=== PATIENT | male | born 1970 | race Caucasian/White ===

== ENCOUNTER → 2016-08-17 | Outpatient (CLI) | payer BC ==
[~2016-08-17] MED LIST: 'PARAFON FORTE500 M1 PO; ALBUTEROL0.09 MG/A1 INH; ALBUTEROL0.09 MG/A2 IH; ANAPROX DS550 MG PO; ASPIRIN81 M1 PO; AUGMENTIN 875 M1 TAB PO; AUGMENTIN 875875 MG PO; AVIDOXY100 MG PO; BACTROBAN OINT22 GM PO; CIPRODEX 0.3%-7.5 ML OT; CLARITIN10 MG PO; CORDROL20 MG PO; DARVOCET N 1001 TAB PO; DAYPRO600 M1 PO; FLEXERIL10 MG PO; FLONASE0.05 MG/AC NS; FLUVOXAMINE50 MG PO; HYDROCODONE BIT1 T11 PO; IBUPROFEN400 MG PO; INDOCIN50 MG PO; LEVOFLOXACIN500 MG PO; MEDROL DOSEPAK4 MG PO; MOTRIN IB200 M1 PO; MOTRIN800 MG PO; NAPROSYN500 MG PO; NKHM; NORCO 325 MG-51 TAB PO; NORCO 5-325 TA1 EACH PO; NORFLEX100 MG PO; PREDNICOT20 MG PO; PROAIR HFA0.09 MG/AC INH; ROBAXIN-750750 MG PO; ROBAXIN750 MG PO; ROBITUSSIN AC 110 ML PO; TRIMOX500 MG PO; VIBRAMYCIN100 MG PO; VICODIN 5/500 505 MG PO; VICODIN 500 MG-1 TAB PO; VICODIN ES 7501 TAB PO; VOLTAREN50 M1 PO; ZITHROMAX Z PA250 MG PO; ZITHROMAX250 MG PO; ZOLOFT50 MG PO
[2016-08-17 13:03] LABS: HEMATOCRIT 48.4 % (42.0-52.0); HEMOGLOBIN 16.5 g/dl (14.0-18.0); MEAN CELL VOLUME 92.5 fl (80.0-94.0); MEAN CORPUSCULAR HGB 31.5 pg (27.0-31.0); MEAN CORPUSCULAR HGB CONC 34.1 g/dl (33.0-37.0); MEAN PLATELET VOLUME 8.8 fl (9.6-12.3); RED BLOOD COUNT 5.23 10*6/uL (4.50-5.90); RED CELL DISTRI WIDTH 13.2 % (0-14.5); WHITE BLOOD COUNT 9.3 10*3/uL (4.8-10.8)
[2016-08-17 13:31] LABS: ALBUMIN 3.5 gm/dl (3.1-4.5); ALKALINE PHOSPHATASE 112 U/L (45-117); BILIRUBIN, TOTAL 0.2 mg/dl (0.2-1.0); BUN 12 mg/dl (7-24); CARBON DIOXIDE 26 mmol/L (21-32); CHLORIDE 109 mmol/L (98-107); CHOLESTEROL 210 mg/dL (<200); EST GLOM FILT AFRICAN AMERICAN > 60 ml/min; GLUCOSE 99 mg/dL (65-99); HDL CHOLESTEROL 42 mg/dl (40-60); LDL CHOLESTEROL 107 mg/dL (9-159); SGOT/AST 24 IU/L (3-35); SGPT/ALT 30 U/L (12-78); SODIUM 144 mmol/L (136-145); TOTAL PROTEIN 6.8 gm/dL (6.4-8.2); TRIGLYCERIDES 305 mg/dl (<150); VLDL CHOLESTEROL 61 mg/dL (6-40)
== END | disposition home or self-care (01) ==
LOC: LAB 12:41
PROVIDERS: Family Medicine
DX: F41.1 Generalized anxiety disorder (principal); E74.00 Glycogen storage disease, unspecified; E78.00 Pure hypercholesterolemia, unspecified; R05 Cough; F32.9 Major depressive disorder, single episode, unspecified; R53.83 Other fatigue; E55.9 Vitamin D deficiency, unspecified; F17.200 Nicotine dependence, unspecified, uncomplicated

== ENCOUNTER 2016-09-05 15:32 | Emergency (ER) | payer BC ==
[~2016-09-05] VITALS: Ht 182.8 cm; Wt 117.9 kg
[2016-09-05] MEDS ORDERED: SERTRALINE HYDR25 MG PO (15:43)
[2016-09-05] MEDS ORDERED: NAPROSYN500 MG PO (18:08)
== END 2016-09-05 19:37 | disposition home or self-care (01) ==
LOC: ED 15:32
DX: M25.562 Pain in left knee (principal); R03.0 Elevated blood-pressure reading, without diagnosis of hypertension; F17.200 Nicotine dependence, unspecified, uncomplicated; Z79.899 Other long term (current) drug therapy

== ENCOUNTER 2016-10-03 13:14 | Emergency (ER) | payer BC ==
[~2016-10-03] VITALS: Ht 182.8 cm; Wt 117.9 kg
[~2016-10-03 13:14] MED LIST changes: +SERTRALINE HYDR25 MG PO
[2016-10-03 13:49] LABS: BASO # 0.1 10*3/uL (0.0-0.1); BASO % 0.4 % (0.0-1.0); EOS # 0.1 10*3/uL (0.0-0.4); EOS % 0.8 % (1.0-4.0); HEMATOCRIT 48.5 % (42.0-52.0); HEMOGLOBIN 16.4 g/dl (14.0-18.0); LYMPH # 2.1 10*3/uL (1.3-4.4); LYMPH % 16.5 % (27.0-41.0); MEAN CELL VOLUME 91.3 fl (80.0-94.0); MEAN CORPUSCULAR HGB 30.9 pg (27.0-31.0); MEAN CORPUSCULAR HGB CONC 33.8 g/dl (33.0-37.0); MONO # 1.3 10*3/uL (0.1-1.0); MONO % 9.8 % (3.0-9.0); NEUT # 9.3 10*3/uL (2.3-7.9); NEUT % 72.3 % (47.0-73.0); PLATELET COUNT AUTOMATED 217 10*3/uL (130-400); RED BLOOD COUNT 5.31 10*6/uL (4.50-5.90); RED CELL DISTRI WIDTH 13.2 % (0-14.5); WHITE BLOOD COUNT 12.9 10*3/uL (4.8-10.8)
[2016-10-03 13:55] LABS: BILIRUBIN NEGATIVE (NEGATIVE); BLOOD 1+ (NEGATIVE); CLARITY CLEAR (CLEAR); COLOR YELLOW (YELLOW); GLUCOSE NEGATIVE (NEGATIVE); KETONE NEGATIVE (NEGATIVE); LEUKO ESTERASE NEGATIVE (NEGATIVE); NITRITE NEGATIVE (NEGATIVE); PROTEIN TRACE (NEGATIVE); UROBILINOGEN 0.2 E.U./dl (0.2-1.0)
[2016-10-03 14:03] LABS: MUCOUS TRACE; WBC 0-2 wbc/hpf (0-5)
[2016-10-03 14:04] LABS: URINE REFLEX COMMENT YES (NO)
[2016-10-03 14:04] LABS: ALBUMIN 3.5 gm/dl (3.1-4.5); ALKALINE PHOSPHATASE 115 U/L (45-117); BILIRUBIN, TOTAL 1.2 mg/dl (0.2-1.0); BUN 9 mg/dl (7-24); CARBON DIOXIDE 26 mmol/L (21-32); CHLORIDE 104 mmol/L (98-107); EST GLOM FILT AFRICAN AMERICAN > 60 ml/min; GLUCOSE 111 mg/dL (65-99); POTASSIUM 3.6 mmol/L (3.5-5.1); SGOT/AST 13 IU/L (3-35); SGPT/ALT 19 U/L (12-78); SODIUM 139 mmol/L (136-145); TOTAL PROTEIN 7.2 gm/dL (6.4-8.2)
[2016-10-03] MEDS ORDERED: CIPRO250 MG PO (15:15)
[2016-10-03] MEDS ORDERED: FLAGYL500 MG PO (15:15)
== END 2016-10-03 15:20 | disposition home or self-care (01) ==
LOC: ED 13:14
PROVIDERS: Nurse Practitioner Family
DX: K57.92 Diverticulitis of intestine, part unspecified, without perforation or abscess without bleeding (principal); F17.200 Nicotine dependence, unspecified, uncomplicated

== ENCOUNTER 2016-11-11 07:19 | Emergency (ER) | payer BC ==
[~2016-11-11] VITALS: Ht 182.8 cm; Wt 114.3 kg
[~2016-11-11 07:19] MED LIST changes: +CIPRO250 MG PO; +FLAGYL500 MG PO
== END 2016-11-11 09:58 | disposition home or self-care (01) ==
LOC: ED 07:19
DX: S61.012A Laceration without foreign body of left thumb without damage to nail, initial encounter (principal); F17.200 Nicotine dependence, unspecified, uncomplicated; W45.8XXA Other foreign body or object entering through skin, initial encounter; Y93.89 Activity, other specified; Y92.9 Unspecified place or not applicable; Y99.9 Unspecified external cause status

== ENCOUNTER 2017-02-02 19:21 | Emergency (ER) | payer BC ==
[~2017-02-02] VITALS: Ht 182.8 cm; Wt 120.2 kg
[2017-02-02] MEDS ORDERED: PREDNISONE10 MG PO (21:06)
[2017-02-02] MEDS ORDERED: ZITHROMAX250 MG PO (21:06)
[2017-02-02] MEDS ORDERED: PROAIR HFA8.5 GM INH (21:06)
== END 2017-02-02 21:24 | disposition home or self-care (01) ==
LOC: ED 19:21
DX: J40 Bronchitis, not specified as acute or chronic (principal); R11.0 Nausea; R63.0 Anorexia; J44.9 Chronic obstructive pulmonary disease, unspecified; F17.200 Nicotine dependence, unspecified, uncomplicated; Z79.899 Other long term (current) drug therapy

== ENCOUNTER → 2017-04-28 | Outpatient (CLI) | payer BC ==
[~2017-04-28] MED LIST changes: +PREDNISONE10 MG PO; +PROAIR HFA8.5 GM INH
[2017-04-28 10:34] LABS: HEMATOCRIT 48.6 % (42.0-52.0); HEMOGLOBIN 16.6 g/dl (14.0-18.0); MEAN CELL VOLUME 92.7 fl (80.0-94.0); MEAN CORPUSCULAR HGB 31.7 pg (27.0-31.0); MEAN CORPUSCULAR HGB CONC 34.2 g/dl (33.0-37.0); MEAN PLATELET VOLUME 8.9 fl (9.6-12.3); RED BLOOD COUNT 5.24 10*6/uL (4.50-5.90); RED CELL DISTRI WIDTH 13.3 % (0-14.5)
[2017-04-28 11:08] LABS: ALBUMIN 3.5 gm/dl (3.1-4.5); BUN 9 mg/dl (7-24); CHLORIDE 107 mmol/L (98-107); POTASSIUM 3.9 mmol/L (3.5-5.1); SODIUM 141 mmol/L (136-145)
[2017-04-28 11:13] LABS: ALKALINE PHOSPHATASE 116 U/L (45-117); CHOLESTEROL 206 mg/dL (<200); CREATININE 1.09 mg/dL (0.70-1.30); HDL CHOLESTEROL 48 mg/dl (40-60); LDL CHOLESTEROL 134 mg/dL (9-159); SGOT/AST 17 IU/L (3-35); SGPT/ALT 27 U/L (12-78); TRIGLYCERIDES 121 mg/dl (<150); VLDL CHOLESTEROL 24 mg/dL (6-40)
== END | disposition home or self-care (01) ==
LOC: LAB 10:08 → CT 11:00
PROVIDERS: Family Medicine
DX: R22.1 Localized swelling, mass and lump, neck (principal); E78.00 Pure hypercholesterolemia, unspecified; R53.83 Other fatigue; E55.9 Vitamin D deficiency, unspecified

== ENCOUNTER 2017-05-23 07:43 | Inpatient (IN) | payer BC ==
[~2017-05-23] VITALS: Ht 182.9 cm; Wt 117.7 kg
[2017-05-23] VITALS (7 sets, daily range): BP systolic 123–162; BP diastolic 70–98
--- NOTE | ~2017-05-23 | WRIGHTHP ---
[place], [place] PATIENT HISTORY AND PHYSICAL EXAM NAME: JERRY DARBY [facility] #: [id number] UNIT #: [id number] ROOM: 507 DOCTOR: VANGIE WINSLOW MD BIRTHDATE: [birth year] DOS: 05/23/2017 HISTORY OF PRESENT ILLNESS: The patient is 47 years old. The patient comes in with complaints of palpitations. The patient states that about 2 days prior to Con, the patient started having some palpitations, especially when he sits down and is quiet. He does not experience that when he is walking around. He denies having any chest pains or palpitations, does not have any fever or chills, does not have any abdominal pain, nausea, emesis. The patient states that he was drinking a pretty large amount of coffee daily and about a month ago, decided that he would cut back on his coffee drinking. He is wondering whether his symptoms were brought about by the decrease in the amount of caffeine. PAST MEDICAL HISTORY: None significant. He has never been hospitalized, has not undergone any surgery. Does not take any medications. He does have history of moderate cigarette smoking. SOCIAL HISTORY: Significant for smoking about a pack of cigarettes for the last close to 30 years, about 4-5 alcoholic drinks a week, occasional pot usage. FAMILY HISTORY: Significant for father who had coronary artery disease at the age of 73. Mother who is fairly healthy. His siblings, 2 of them have diabetes. He is and has 6 children who are all grown. PHYSICAL EXAMINATION: GENERAL: He is awake and alert and oriented. VITAL SIGNS: Graphic trend shows a pressure 137/79, pulse of 63, respirations 18, temperature 97.9. LUNGS: Clear. HEART: Regular. ABDOMEN: Soft. EXTREMITIES: Without any edema. LABORATORY DATA: Lactic acid is normal. White cell count is normal, hemoglobin and hematocrit were normal, platelets were normal. Protime is normal. Comprehensive within normal limits. EKG, sinus. ASSESSMENT AND PLAN: The patient who presents with palpitations, possibly from excessive intake of caffeine as well as nicotine. Advised cessation. Echocardiogram is ordered. Check LV function. A low-dose beta shaniqua was added. Cardiology consultation was obtained and the patient is awaiting a stress test. Initial troponins were negative. If the stress test is negative, the plan is to discharge him to home today on a low dose of beta shaniqua. [place], [place] PATIENT HISTORY AND PHYSICAL EXAM NAME: JERRY DARBY UNIT #: [id number] ROOM: 507 DOCTOR: VANGIE WINSLOW MD BIRTHDATE: [birth year] VANGIE WINSLOW MD CM:HISPHYS:PATIENT HISTORY AND PHYSICAL EXAMINATION 1 4 VANGIE WINSLOW MD 05/24/17914 interface
[2017-05-23 08:23] LABS: BASO # 0.1 10*3/uL (0.0-0.1); BASO % 0.5 % (0.0-1.0); EOS # 0.1 10*3/uL (0.0-0.4); EOS % 1.5 % (1.0-4.0); HEMATOCRIT 46.3 % (42.0-52.0); HEMOGLOBIN 15.9 g/dl (14.0-18.0); LYMPH # 2.8 10*3/uL (1.3-4.4); LYMPH % 29.6 % (27.0-41.0); MEAN CELL VOLUME 92.2 fl (80.0-94.0); MEAN CORPUSCULAR HGB 31.7 pg (27.0-31.0); MEAN CORPUSCULAR HGB CONC 34.3 g/dl (33.0-37.0); MEAN PLATELET VOLUME 9.1 fl (9.6-12.3); MONO # 0.9 10*3/uL (0.1-1.0); MONO % 9.5 % (3.0-9.0); NEUT # 5.5 10*3/uL (2.3-7.9); NEUT % 58.7 % (47.0-73.0); PLATELET COUNT AUTOMATED 199 10*3/uL (130-400); RED BLOOD COUNT 5.02 10*6/uL (4.50-5.90); RED CELL DISTRI WIDTH 13.4 % (0-14.5); WHITE BLOOD COUNT 9.4 10*3/uL (4.8-10.8)
[2017-05-23 08:31] LABS: ACT PARTIAL THROMBO TIME 22.6 SECONDS (20.8-31.5); INTERNATIONAL NORM RATIO 0.9 (2.0-3.5)
[2017-05-23 08:46] LABS: ALBUMIN 3.4 gm/dl (3.1-4.5); ALKALINE PHOSPHATASE 106 U/L (45-117); BUN 8 mg/dl (7-24); CHLORIDE 109 mmol/L (98-107); LIPASE 183 U/L (73-393); POTASSIUM 3.6 mmol/L (3.5-5.1); SGOT/AST 23 IU/L (3-35); SGPT/ALT 38 U/L (12-78); SODIUM 140 mmol/L (136-145); TOTAL PROTEIN 6.8 gm/dL (6.4-8.2); TROPONIN I < 0.015 ng/ml (<0.045)
[2017-05-24] VITALS: BP 114/76
[2017-05-24 04:00] VITALS: BP 101/54
[2017-05-24 07:19] LABS: FREE T4 0.95 ng/dl (0.76-1.46)
[2017-05-24 07:24] LABS: THYROID STIM HORMONE (HS) 1.22 uIU/ml (0.358-4.75)
[2017-05-24 08:00] VITALS: BP 137/79
[2017-05-24] MEDS ORDERED: METOPROLOL SUCC25 M2 PO (09:02)
[2017-05-24 12:00] VITALS: BP 125/65
[2017-05-24 16:00] VITALS: BP 112/67
== END 2017-05-24 18:45 | disposition home or self-care (01) | DRG 204 ==
LOC: ED 07:43 → 5E 09:29 → EDHOLD 09:29 → 5E 09:47
PROVIDERS: Emergency Medicine; Internal Medicine
DX: R06.09 Other forms of dyspnea (principal); E11.9 Type 2 diabetes mellitus without complications; R00.2 Palpitations; F12.90 Cannabis use, unspecified, uncomplicated; Z78.9 Other specified health status; F17.210 Nicotine dependence, cigarettes, uncomplicated; Z82.49 Family history of ischemic heart disease and other diseases of the circulatory system; G89.29 Other chronic pain; M54.5 Low back pain; F17.200 Nicotine dependence, unspecified, uncomplicated

== ENCOUNTER 2017-12-08 17:39 | Emergency (ER) | payer BC ==
[~2017-12-08] VITALS: Wt 117.9 kg
[~2017-12-08 17:39] MED LIST changes: +METOPROLOL SUCC25 M2 PO
[2017-12-08] MEDS ORDERED: ALLEGRA-D 24 H1 EACH PO (17:59)
[2017-12-08] MEDS ORDERED: AUGMENTIN 875875 MG PO (17:59)
[2017-12-08] MEDS ORDERED: FLONASE ALLERG9.9 ML NAS (17:59)
== END 2017-12-08 18:02 | disposition home or self-care (01) ==
LOC: ED 17:39
DX: H65.91 Unspecified nonsuppurative otitis media, right ear (principal); R05 Cough; F17.200 Nicotine dependence, unspecified, uncomplicated; F12.10 Cannabis abuse, uncomplicated; Z79.899 Other long term (current) drug therapy

== ENCOUNTER 2017-12-19 14:34 | Emergency (ER) | payer BC ==
[~2017-12-19] VITALS: Ht 182.8 cm; Wt 120.2 kg
[~2017-12-19 14:34] MED LIST changes: +ALLEGRA-D 24 H1 EACH PO; +FLONASE ALLERG9.9 ML NAS
[2017-12-19] MEDS ORDERED: CYCLOBENZAPRINE5 M3 PO (14:56)
[2017-12-19] MEDS ORDERED: PREDNISONE10 MG PO (14:56)
== END 2017-12-19 15:21 | disposition home or self-care (01) ==
LOC: ED 14:34
DX: M54.5 Low back pain (principal); M79.1 Myalgia; Z87.891 Personal history of nicotine dependence

== ENCOUNTER 2018-04-20 14:51 | Inpatient (IN) | payer BC ==
[2018-04-20] VITALS (9 sets, daily range): BP systolic 122–170; BP diastolic 72–102
[~2018-04-20] VITALS: Ht 182.8 cm; Wt 119.1 kg
--- NOTE | ~2018-04-20 | WRIGHTHP ---
[place], [place] PATIENT HISTORY AND PHYSICAL EXAM NAME: JRERY DARBY [facility] #: [id number] UNIT #: [id number] ROOM: 405 DOCTOR: VANGIE WINSLOW MD BIRTHDATE: [birth year] DOS: HISTORY OF PRESENT ILLNESS: The patient is 48 years old. The patient is known to me from a previous admission, comes in with complaints of chest pain, which is midsternal, radiating to the left side of his chest. He has been having these symptoms in the last 2-3 days, getting worse at times and sometimes lightening up. Finally, his forced him to come to the Emergency Room where he was evaluated. He denies having any chest pains this morning. He says that it is much better than when he came in. Denies having any fever, any chills, any pleuritic symptoms, any shortness of breath. He was admitted to the hospital in 05/2017 with palpitations, had a stress test at that time and it was negative. He also had an echo, which was normal. He was placed on beta blockers, but he never took the medicine and he unfortunately was continuing to smoke. PAST MEDICAL HISTORY: As above, history of hospitalization in 05/2017 with palpitations. SOCIAL HISTORY: Smokes about a pack of cigarettes for the last more than 25 years. Drinks about 4-5 drinks a couple of beers a day and sometimes up to a case of beer a week, occasional usage of marijuana. FAMILY HISTORY: Significant for father who had coronary artery disease at the age of 76, mother who has history of deep venous thrombosis; pulmonary embolism, on long-term use of anticoagulants. One brother who has history of DVT. PHYSICAL EXAMINATION: GENERAL: He is awake and alert and oriented. VITAL SIGNS: Graphic trend shows a pressure of 142/82, pulse of 60, respirations 20, temperature 97.2. LUNGS: Clear. HEART: Regular. ABDOMEN: Obese, soft, nontender. EXTREMITIES: Without any edema. ASSESSMENT AND PLAN: 1. The patient admitted with precordial chest pain. Risk factors including smoking. The patient is scheduled to have a stress test consultation, Dr. Mendez obtained. Echocardiogram is ordered. The patient is restarted on Lopressor, beta blockers as well as lipid lowering medications. 2. Mixed hyperlipidemia. Add Zocor. 3. Has moderate cigarette smoker, advised smoking cessation. The plan is to discharge the patient to home if the stress test is negative. [place], [place] PATIENT HISTORY AND PHYSICAL EXAM NAME: JERRY DARBY UNIT #: [id number] ROOM: 405 DOCTOR: VANGIE WINSLOW MD BIRTHDATE: [birth year] VANGIE WINSLOW MD CM:HISPHYS:PATIENT HISTORY AND PHYSICAL EXAMINATION 1 VANGIE WINSLOW MD 04/21/18911 interface
--- NOTE | ~2018-04-20 | EKG ---
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
--- NOTE | ~2018-04-20 | EKG ---
[place], [place] ELECTROCARDIOGRAM REPORT NAME: JERRY DARBY UNIT #: [id number] ROOM: 405 DOCTOR: ELLA DRAFT REPORT BIRTHDATE: [birth year] [facility] Test Date: 2018-04-20 Test Time: 20:09:46 Pat Name: JERRY DARBY Department: Room: 405 Gender: M [employer] Worker: Jerica Loera : 1970 Requested By: AKASH CAMPO Order Number: [id number] Reading MD: Linda Sanderson MD Measurements Intervals [place] Rate: 60 P: 69 HI: 166 QRS: 28 QRSD: 116 T: 58 QT: 415 QTc: 415 Interpretive Statements Sinus rhythm Nonspecific intraventricular conduction delay Borderline low voltage, extremity leads Baseline wander in lead(s) V2 Electronically Signed On 04-24-2018 13:57:06 PST by Linda Sanderson MD CM:EKGRPT:ELECTROCARDIOGRAM REPORT 08 1357 AKASH JARAMILLO DRAFT REPORT AKASH CAMPO M.D.
--- NOTE | ~2018-04-20 | CON ---
[place], [place] REPORT OF CONSULTATION NAME: JERRY DARBY [facility] #: [id number] UNIT #: [id number] ROOM: 405 DOCTOR: ZHEN DELGADO MD BIRTHDATE: [birth year] DOS: 04/21/2018 CARDIOLOGY CONSULTATION REASON FOR CONSULTATION: Left chest discomfort. HISTORY OF PRESENT ILLNESS: The patient is a 48-year-old man who has no documented history of coronary artery disease. He did have a cardiac evaluation by the undersigned in 05/2017 when he presented to the [facility] with palpitations. At that time, he ruled out for a myocardial infarction. An echocardiogram and exercise myocardial stress test both were normal. He was doing well until yesterday. He stated that he noted that he had a tender area in his left axilla. The following morning when he awakened the tender area was gone, but he felt a pain in his left anterior chest. This was not tender, but was associated with some diaphoresis and dyspnea. He did not have any vomiting. The symptoms persisted for 8-10 hours while he was at work. He became concerned and then he came to the Emergency Room. His symptoms have persisted, but are no longer associated with any other symptoms. In the Emergency Room, his electrocardiogram was normal and serial cardiac troponin levels have been normal. PAST MEDICAL HISTORY: Includes: 1. Long-term and ongoing cigarette abuse. 2. Bronchitis. 3. Mildly elevated blood pressure (not currently treated). 4. Degenerative joint disease of his hips and knees. 5. Pleuritic chest pain. The patient initially thought to have a pulmonary embolism, but this was subsequently ruled out. 6. Hospitalization, 05/2017 with palpitations. The patient had no documented arrhythmias and a stress test and echo were normal at that time. MEDICATIONS: Prior to admission included metoprolol 25 mg daily and simvastatin 10 mg at bedtime. ALLERGIES: He has no known drug allergies. FAMILY HISTORY: The patient's father had coronary artery disease with a 4-vessel bypass in his late 60s or 70s. Several family members do have diabetes. A brother early in life from congenital heart disease. REVIEW OF SYSTEMS: The patient denies diplopia or loss of vision. He denies lightheadedness or syncope. He denies nausea or vomiting. He denies fevers, chills, sweats or recent weight change. He denies focal weakness. He did have the chest pain discussed above. He does have some dyspnea with exertion, but denies cough, hemoptysis or hematemesis. He denies that he has pleuritic chest pain at this time. He denies any change in bowel or bladder habits. He denies blood in his stools or urine. He denies any peripheral edema. He denies polyuria or polydipsia. Denies heat or cold intolerance. The remaining of the review of systems is negative except as noted above. [place], [place] REPORT OF CONSULTATION NAME: JERRY DARBY UNIT #: [id number] ROOM: 405 DOCTOR: ZHEN DELGADO MD BIRTHDATE: [birth year] SOCIAL HISTORY: The patient is and lives with his . 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 He does smoke a half a pack to a pack of cigarettes a day and does drink alcohol several days a week. PHYSICAL EXAMINATION: GENERAL: The patient is a well-nourished white male, awake, alert and oriented. VITAL SIGNS: Pulse is 60 and regular, blood pressure is 142/82. He weighs 119.1 kg and has a body mass index of 35.6. HEENT: Normocephalic and atraumatic. Extraocular muscles are intact. Sclerae are clear. Pupils equal, round and react to light. The oral mucosa is moist. Tongue is midline. NECK: Supple. He has no jugular distention. Carotids are full. There are no bruits. He has no neck or supraclavicular masses and no thyromegaly. RESPIRATORY: Respirations are unlabored. CHEST: Clear to auscultation and percussion. He has no presacral edema or chest wall tenderness. CARDIOVASCULAR: His heart has a regular rhythm. He has a soft S4 gallop, but no S3 or murmur. The PMI is not displaced. He has no precordial heave, lift or thrill. I could not reproduce his pain by palpation of the anterior chest. ABDOMEN: Soft and normally active without masses, organomegaly or bruits. EXTREMITIES: Showed no clubbing, cyanosis or edema. LABORATORY DATA: I reviewed his electrocardiogram, which showed sinus rhythm and was a normal tracing. Chest x-ray showed no acute changes and a CT angiogram of the chest was also normal. Serial troponin levels were normal. CBC is normal. IMPRESSIONS: 1. Atypical chest pain. The fact that the pain has lasted for multiple hours without any EKG changes or elevation in troponin, is reassuring. He does have some risk factors for coronary artery disease, so we will proceed with a pharmacologic stress test. He cannot do an exercise test because of hip arthritis. 2. History of palpitations and increased cardiac awareness. No significant arrhythmia has been documented in the past. 3. Long-term and ongoing cigarette abuse. PLAN: We will proceed with a pharmacologic stress test. Further recommendations will depend upon the results of the stress test. I did review his echocardiogram this morning and it is normal. I thank Dr. Stallworth for asking our advice regarding his care. [place], [place] REPORT OF CONSULTATION NAME: JERRY DARBY UNIT #: [id number] ROOM: 405 DOCTOR: ZHEN DELGADO MD BIRTHDATE: [birth year] ZHEN DELGADO MD CM:CONSTR:REPORT OF CONSULTATION 1026 04/21/18 192 interface
--- NOTE | ~2018-04-20 | EKG ---
[place], [place] ELECTROCARDIOGRAM REPORT NAME: JERRY DARBY UNIT #: [id number] ROOM: 405 DOCTOR: ELLA DRAFT REPORT BIRTHDATE: [birth year] [facility] Test Date: 2018-04-20 Test Time: 18:04:41 Pat Name: JERRY DARBY Department: Room: 405 Gender: M [employer] Driver: : 1970 Requested By: AKASH CAMPO Order Number: [id number] Reading MD: Landon Mendez MD Measurements Intervals [place] Rate: 63 P: 60 NE: 162 QRS: 9 QRSD: 110 T: 60 QT: 402 QTc: 412 Interpretive Statements Sinus rhythm RSR' in V1 or V2, right VCD or RVH No change from earlier ECG this date. Electronically Signed On 04-21-2018 12:12:07 PST by Landon Mendez MD CM:EKGRPT:ELECTROCARDIOGRAM REPORT 1804 1212 AKASH JARAMILLO DRAFT REPORT AKASH CAMPO M.D.
[~2018-04-20 14:51] MED LIST changes: +CYCLOBENZAPRINE5 M3 PO
[2018-04-20 15:07] LABS: BASO % 0.4 % (0.0-1.0); EOS # 0.2 10*3/uL (0.0-0.4); EOS % 1.8 % (1.0-4.0); HEMATOCRIT 51.6 % (42.0-52.0); HEMOGLOBIN 17.8 g/dl (14.0-18.0); LYMPH # 2.3 10*3/uL (1.3-4.4); LYMPH % 25.8 % (27.0-41.0); MEAN CORPUSCULAR HGB 32.8 pg (27.0-31.0); MEAN CORPUSCULAR HGB CONC 34.5 g/dl (33.0-37.0); MEAN PLATELET VOLUME 8.8 fl (9.6-12.3); MONO # 0.6 10*3/uL (0.1-1.0); MONO % 6.4 % (3.0-9.0); NEUT # 5.9 10*3/uL (2.3-7.9); NEUT % 65.4 % (47.0-73.0); PLATELET COUNT AUTOMATED 236 10*3/uL (130-400); RED BLOOD COUNT 5.43 10*6/uL (4.50-5.90); RED CELL DISTRI WIDTH 12.9 % (0-14.5)
[2018-04-20 15:16] LABS: ACT PARTIAL THROMBO TIME 21.3 SECONDS (20.8-31.5); INTERNATIONAL NORM RATIO 0.9 (2.0-3.5)
[2018-04-20 15:23] LABS: ALBUMIN 3.7 gm/dl (3.1-4.5); ALKALINE PHOSPHATASE 115 U/L (45-117); BUN 12 mg/dl (7-24); CHLORIDE 104 mmol/L (98-107); POTASSIUM 3.5 mmol/L (3.5-5.1); SGOT/AST 25 IU/L (3-35); SGPT/ALT 36 U/L (12-78); SODIUM 138 mmol/L (136-145); TOTAL PROTEIN 7.2 gm/dL (6.4-8.2)
[2018-04-20 15:24] LABS: TROPONIN I < 0.015 ng/ml (<0.045)
[2018-04-21] VITALS: BP 145/94
[2018-04-21 02:58] LABS: CHOLESTEROL 188 mg/dL (<200); HDL CHOLESTEROL 38 mg/dl (40-60); LDL CHOLESTEROL 126 mg/dL (9-159); TRIGLYCERIDES 121 mg/dl (<150); VLDL CHOLESTEROL 24 mg/dL (6-40)
[2018-04-21 08:00] VITALS: BP 142/82
[2018-04-21] MEDS ORDERED: METOPROLOL SUCC25 M2 PO (08:13)
[2018-04-21] MEDS ORDERED: ZOCOR10 MG PO (08:13)
[2018-04-21 12:00] VITALS: BP 142/82
== END 2018-04-21 13:36 | disposition home or self-care (01) | DRG 313 ==
LOC: ED 14:51 → EDHOLD 17:53 → 4E 17:53
PROVIDERS: Emergency Medicine; Internal Medicine
PROC: 3E073KZ Introduction of Other Diagnostic Substance into Coronary Artery, Percutaneous Approach (ICD-10-PCS; principal; 2018-04-21)
PROC: 4A02XM4 Measurement of Cardiac Total Activity, External Approach (ICD-10-PCS; principal; 2018-04-21)
DX: R07.2 Precordial pain (principal); E78.2 Mixed hyperlipidemia; M17.0 Bilateral primary osteoarthritis of knee; M16.0 Bilateral primary osteoarthritis of hip; F17.210 Nicotine dependence, cigarettes, uncomplicated; Z86.711 Personal history of pulmonary embolism; Z82.49 Family history of ischemic heart disease and other diseases of the circulatory system; Z79.82 Long term (current) use of aspirin; Z71.6 Tobacco abuse counseling

== ENCOUNTER 2019-07-20 18:29 | Inpatient (IN) | payer BC ==
[~2019-07-20] VITALS: Ht 182.9 cm; Wt 118.2 kg
[~2019-07-20 18:29] MED LIST changes: +ZOCOR10 MG PO
[2019-07-20 18:42] VITALS: BP 178/96
[2019-07-20 19:46] LABS: CLARITY CLEAR (CLEAR); COLOR STRAW (YELLOW)
[2019-07-20 19:47] LABS: BILIRUBIN NEGATIVE (NEGATIVE); BLOOD TRACE-INTACT (NEGATIVE); GLUCOSE NEGATIVE (NEGATIVE); KETONE NEGATIVE (NEGATIVE); LEUKO ESTERASE NEGATIVE (NEGATIVE); NITRITE NEGATIVE (NEGATIVE); PH 6.5 (5.0-9.0); UROBILINOGEN 0.2 E.U./dl (0.2-1.0)
[2019-07-20 19:49] LABS: BACTERIA TRACE; EPITHELIAL CELLS 0-2; WBC 0-2 wbc/hpf (0-5)
[2019-07-20 19:52] LABS: BASO # 0.1 10*3/uL (0.0-0.1); BASO % 0.3 % (0.0-1.0); EOS # 0.1 10*3/uL (0.0-0.4); EOS % 0.5 % (1.0-4.0); HEMOGLOBIN 16.9 g/dl (14.0-18.0); LYMPH # 1.9 10*3/uL (1.3-4.4); MEAN CORPUSCULAR HGB 33.1 pg (27.0-31.0); MEAN CORPUSCULAR HGB CONC 33.8 g/dl (33.0-37.0); MEAN PLATELET VOLUME 9.2 fl (9.6-12.3); MONO # 1.2 10*3/uL (0.1-1.0); MONO % 8.1 % (3.0-9.0); NEUT # 11.6 10*3/uL (2.3-7.9); NEUT % 77.8 % (47.0-73.0); PLATELET COUNT AUTOMATED 201 10*3/uL (130-400); RED CELL DISTRI WIDTH 12.6 % (0-14.5); WHITE BLOOD COUNT 14.9 10*3/uL (4.8-10.8)
[2019-07-20 20:08] LABS: ALBUMIN 3.4 gm/dl (3.1-4.5); ALKALINE PHOSPHATASE 109 U/L (45-117); BUN 12 mg/dl (7-24); CHLORIDE 108 mmol/L (98-107); CREATININE 1.02 mg/dL (0.70-1.30); LIPASE 147 U/L (73-393); POTASSIUM 3.3 mmol/L (3.5-5.1); SGPT/ALT 35 U/L (12-78); SODIUM 138 mmol/L (136-145); TOTAL PROTEIN 6.7 gm/dL (6.4-8.2)
[2019-07-20 20:11] LABS: SGOT/AST 19 IU/L (3-35)
[2019-07-20 22:38] VITALS: BP 152/93
--- NOTE | 2019-07-20 22:41 | NUR ---
PT RESTING IN BED. IN NO ACUTE DISTRESS
--- NOTE | 2019-07-21 00:06 | NUR ---
PT STATES HIS PAIN HAS DECREASED SINCE THE DILAUDID
[2019-07-21 00:15] VITALS: BP 149/94
--- NOTE | 2019-07-21 00:15 | NUR ---
A 49, admitted to 5E, under the services of Dr. BREN BARAHONA,ELIANA Cooper with a diagnosis of DIVERTICULITIS, HYPOKALEMIA. Chief complaint is RIGHT AND LEFT LOWER QUADRANT ABDOMINAL PAIN. Patient arrived via CART from ER. Initial assessment completed. Vital signs taken and recorded. DR. BREN BARAHONA,ELIANA Cooper notified of admission to the unit. Orders received. See assessment for past medical history, medications and allergies. Patient and/or family oriented to [facility]. visitation policy reviewed. Clothing/patient valuable form completed. LUIS RODRIGUEZ RN
--- NOTE | 2019-07-21 06:30 | NUR ---
CALLED AT THIS TIME TO NOTIFY OF NEW CONSULT, MESSAGE LEFT ON VOICE MAIL. WILL ATTEMPT TO CALL AT A LATER TIME.
[2019-07-21 07:30] LABS: BUN 10 mg/dl (7-24); CHLORIDE 110 mmol/L (98-107); CREATININE 0.94 mg/dL (0.70-1.30); POTASSIUM 3.3 mmol/L (3.5-5.1); SODIUM 140 mmol/L (136-145)
[2019-07-21 08:00] VITALS: BP 125/72
--- NOTE | 2019-07-21 09:09 | NUR ---
Dilaudid given for c/o deep aching lower abdominal pain. Will monitor.
--- NOTE | 2019-07-21 10:00 | NUR ---
Dilaudid effective. Patient satisified, no c/o pain or discomfort.
--- NOTE | 2019-07-21 13:44 | NUR ---
Dilaudid given for patient c/o lower abdominal pain. Will monitor.
--- NOTE | 2019-07-21 14:20 | NUR ---
Dilaudid effective. Patient asleep with respirations >12.
--- NOTE | 2019-07-21 15:11 | NUR ---
Message left with regarding consult.
[2019-07-21 16:00] VITALS: BP 126/70
[2019-07-21 20:00] VITALS: BP 132/59
--- NOTE | 2019-07-21 23:00 | NUR ---
PRN IV DILAUDID GIVEN AT THIS TIME FOR 6/10 LOWER ABDOMINAL PAIN. A&O X3, CALL LIGHT WITHIN REACH. WILL CONTINUE TO MONITOR.
[2019-07-22] VITALS: BP 134/77
[2019-07-22 06:30] LABS: BASO % 0.3 % (0.0-1.0); EOS # 0.1 10*3/uL (0.0-0.4); EOS % 1.1 % (1.0-4.0); HEMATOCRIT 46.7 % (42.0-52.0); HEMOGLOBIN 15.4 g/dl (14.0-18.0); LYMPH # 1.6 10*3/uL (1.3-4.4); LYMPH % 22.5 % (27.0-41.0); MEAN CELL VOLUME 99.4 fl (80.0-94.0); MEAN CORPUSCULAR HGB 32.8 pg (27.0-31.0); MEAN PLATELET VOLUME 9.2 fl (9.6-12.3); MONO # 0.7 10*3/uL (0.1-1.0); MONO % 10.2 % (3.0-9.0); NEUT # 4.6 10*3/uL (2.3-7.9); NEUT % 65.8 % (47.0-73.0); PLATELET COUNT AUTOMATED 172 10*3/uL (130-400); RED CELL DISTRI WIDTH 12.3 % (0-14.5)
[2019-07-22 07:07] LABS: BUN 7 mg/dl (7-24); CHLORIDE 110 mmol/L (98-107); CREATININE 0.84 mg/dL (0.70-1.30); POTASSIUM 3.8 mmol/L (3.5-5.1); SODIUM 141 mmol/L (136-145)
[2019-07-22 08:00] VITALS: BP 135/88
[2019-07-22 16:00] VITALS: BP 155/91
--- NOTE | 2019-07-22 17:20 | NUR ---
Dilaudid given for c/o abdominal pain. Will monitor.
--- NOTE | 2019-07-22 17:50 | NUR ---
Dilaudid effective. Patient satisfied.
--- NOTE | 2019-07-22 19:40 | NUR ---
48 hour chart check complete
[2019-07-22 20:00] VITALS: BP 144/84
--- NOTE | 2019-07-22 23:00 | NUR ---
PRN IV DILAUDID GIVEN AT THIS TIME FOR 5/10 RLQ ABDOMINAL PAIN, A&O X3, CALL LIGHT WITHIN REACH, WILL CONTINUE TO MONITOR.
[2019-07-23] VITALS: BP 152/96
--- NOTE | 2019-07-23 | NUR ---
PATIENT STATED THAT PAIN WAS NOW A 2/10 AFTER PRN IV DILAUDID WAS GIVEN, A&O X3 CALL LIGHT WITHIN REACH WILL CONTINUE TO MONITOR.
[2019-07-23 06:54] LABS: BASO % 0.4 % (0.0-1.0); EOS # 0.1 10*3/uL (0.0-0.4); EOS % 1.4 % (1.0-4.0); HEMATOCRIT 45.2 % (42.0-52.0); HEMOGLOBIN 14.9 g/dl (14.0-18.0); LYMPH # 1.7 10*3/uL (1.3-4.4); LYMPH % 23.8 % (27.0-41.0); MEAN CELL VOLUME 99.6 fl (80.0-94.0); MEAN CORPUSCULAR HGB 32.8 pg (27.0-31.0); MEAN PLATELET VOLUME 9.4 fl (9.6-12.3); MONO # 0.8 10*3/uL (0.1-1.0); MONO % 11.2 % (3.0-9.0); NEUT # 4.5 10*3/uL (2.3-7.9); NEUT % 63.1 % (47.0-73.0); PLATELET COUNT AUTOMATED 178 10*3/uL (130-400); RED BLOOD COUNT 4.54 10*6/uL (4.50-5.90); RED CELL DISTRI WIDTH 12.3 % (0-14.5); WHITE BLOOD COUNT 7.2 10*3/uL (4.8-10.8)
[2019-07-23 07:16] LABS: BUN 8 mg/dl (7-24); CHLORIDE 110 mmol/L (98-107); CREATININE 1.01 mg/dL (0.70-1.30); POTASSIUM 3.6 mmol/L (3.5-5.1); SODIUM 140 mmol/L (136-145)
[2019-07-23 08:00] VITALS: BP 134/82
--- NOTE | 2019-07-23 09:00 | NUR ---
Manager Analysis in to talk to patient. Patient states lives at home with his , daughter, and granddaughter. There are "lots" steps in the home. Physician: Dr. Manuel Frias Pharmacy: [facility] Home health services: none Patient's level of ADLs: INDEPENDENT Patient has working utilities: yes DME: none Follow-up physician's appointment after d/c: he prefers to make his own follow up appt upon discharge Does patient want to access PORTAL?: no Discharge plan discussed with patient. He lives at home with his , daughter, and granddaughter. He is independent in his ADLs and ambulation. Discussed home health care services and he denies any home needs at this time. When medically stable he will be discharged to home. He states his will provide transportation on discharge. ANDREW CHACKO
[2019-07-23 12:00] VITALS: BP 155/98
--- NOTE | 2019-07-23 12:01 | NUR ---
PT MEDICATED WITH IV DILAUDID PER PRN ORDER FOR C/O ABD PAIN. RATES PAIN 10/23. WILL MONITOR EFFECTIVENESS.
--- NOTE | 2019-07-23 12:45 | NUR ---
IV DILAUDID EFFECTIVE PER PT. WILL CONTINUE TO MONITOR.
--- NOTE | 2019-07-23 14:27 | NUR ---
IN TO SEE PATIENT.
[2019-07-23 16:00] VITALS: BP 156/101
--- NOTE | 2019-07-23 18:50 | NUR ---
PT MEDICATED WITH IV DILAUDID PER PRN ORDER FOR C/O ABD PAIN. RATES PAIN 11/22. WILL MONITOR EFFECTIVENESS.
[2019-07-23 20:00] VITALS: BP 151/87
--- NOTE | 2019-07-23 21:00 | NUR ---
RESTING IN BED WITH NO ACUTE DISTRESS NOTED. RESPIRATIONS EASY. LUNGS DIMINISHED, CLEAR. PULSE OX 99% RA. ABD SOFT WITH NORMO BS. IV FLUIDS INFUSING PER ORDER. CALL LIGHT WITHIN REACH. NO VOICED COMPLAINTS
--- NOTE | 2019-07-23 22:58 | NUR ---
24 HR chart check completed.
--- NOTE | 2019-07-23 23:09 | NUR ---
REQUESTED AND RECEIVED DILAUDID IV PER PRN ORDER FOR COMPLAINTS OF ABD PAIN RATING A 5. CALL LIGHT WITHIN REACH. WILL MONITOR FOR EFFECTIVENESS
[2019-07-24] VITALS: BP 154/91
--- NOTE | 2019-07-24 | NUR ---
REMAINS AWAKE, WATCHING TV. STATES RELIEF FROM EARLIER MEDS. RESPIRATIONS EASY. VSS. IV FLUIDS INFUSING PER ORDER. CALL LIGHT WITHIN REACH. NO FURTHER VOICED COMPLAINTS
--- NOTE | 2019-07-24 03:00 | NUR ---
SLEEPING. IV FLUIDS MAINTAINED.
--- NOTE | 2019-07-24 06:00 | NUR ---
SLEPT THROUGHOUT NIGHT WITH NO DISTRESS NOTED. RESPIRATIONS EASY. IV FLUIDS MAINTAINED. CALL LIGHT WITHIN REACH. NO VOICED COMPLAINTS THIS SHIFT
[2019-07-24 06:33] LABS: BASO % 0.4 % (0.0-1.0); EOS # 0.1 10*3/uL (0.0-0.4); EOS % 1.7 % (1.0-4.0); HEMATOCRIT 46.8 % (42.0-52.0); HEMOGLOBIN 15.7 g/dl (14.0-18.0); LYMPH # 1.6 10*3/uL (1.3-4.4); LYMPH % 20.8 % (27.0-41.0); MEAN CELL VOLUME 98.9 fl (80.0-94.0); MEAN CORPUSCULAR HGB 33.2 pg (27.0-31.0); MEAN CORPUSCULAR HGB CONC 33.5 g/dl (33.0-37.0); MEAN PLATELET VOLUME 9.1 fl (9.6-12.3); MONO # 0.8 10*3/uL (0.1-1.0); MONO % 10.3 % (3.0-9.0); NEUT % 66.5 % (47.0-73.0); PLATELET COUNT AUTOMATED 190 10*3/uL (130-400); RED BLOOD COUNT 4.73 10*6/uL (4.50-5.90); RED CELL DISTRI WIDTH 12.2 % (0-14.5); WHITE BLOOD COUNT 7.5 10*3/uL (4.8-10.8)
[2019-07-24 07:01] LABS: BUN 8 mg/dl (7-24); CHLORIDE 110 mmol/L (98-107); CREATININE 1.03 mg/dL (0.70-1.30); SODIUM 142 mmol/L (136-145)
[2019-07-24 08:00] VITALS: BP 147/86
--- NOTE | 2019-07-24 09:40 | NUR ---
PT RESTING IN BED. RESP-EASY AND REGULAR. IVF INFUSING WITH NO PROBLEM. NO C/O AT THIS TIME. CALL LIGHT IN REACH. SEE SHIFT ASSESSMENT.
[2019-07-24] MEDS ORDERED: AUGMENTIN 875-875 MG PO (10:26)
--- NOTE | 2019-07-24 12:13 | NUR ---
Discharge instructions reviewed with patient/family. Patient receptive and verbalizes understanding. Follow-up care arranged. Written instructions given to patient/family. [facility] REMOVED 2X2 APPLIED. AMBULATORY OFF THE FLOOR FOR DISCHARGE. KENNEDY DAY
== END 2019-07-24 12:13 | disposition home or self-care (01) | DRG 392 ==
LOC: ED 18:29 → EDHOLD 22:51 → 5E 22:51
PROVIDERS: Nurse Practitioner; ADMIT Internal Medicine
DX: K57.32 Diverticulitis of large intestine without perforation or abscess without bleeding (principal); E87.6 Hypokalemia; E78.2 Mixed hyperlipidemia; I10 Essential (primary) hypertension; E66.01 Morbid (severe) obesity due to excess calories; F17.210 Nicotine dependence, cigarettes, uncomplicated; F12.90 Cannabis use, unspecified, uncomplicated; G89.29 Other chronic pain; M54.5 Low back pain; M17.11 Unilateral primary osteoarthritis, right knee; Z68.35 Body mass index [BMI] 35.0-35.9, adult; Z71.6 Tobacco abuse counseling

== ENCOUNTER → 2019-11-16 | Outpatient (CLI) | payer BC ==
[~2019-11-16] MED LIST changes: +AUGMENTIN 875-875 MG PO
== END | disposition home or self-care (01) ==
LOC: US 16:56
DX: N50.3 Cyst of epididymis (principal); N50.89 Other specified disorders of the male genital organs

== ENCOUNTER 2019-12-01 09:28 | Emergency (ER) | payer BC ==
[~2019-12-01] VITALS: Ht 182.8 cm; Wt 111.1 kg
[2019-12-01] MEDS ORDERED: CYCLOBENZAPRINE5 M3 PO (10:39)
[2019-12-01] MEDS ORDERED: MEDROL DOSEPAK4 MG PO (10:39)
[2019-12-01] MEDS ORDERED: NORCO 5-325 TA1 EACH PO (10:39)
== END 2019-12-01 10:57 | disposition home or self-care (01) ==
LOC: ED 09:28
DX: M54.16 Radiculopathy, lumbar region (principal); F32.9 Major depressive disorder, single episode, unspecified; M19.90 Unspecified osteoarthritis, unspecified site; F17.200 Nicotine dependence, unspecified, uncomplicated; Z79.899 Other long term (current) drug therapy

== ENCOUNTER → 2019-12-11 | Outpatient (CLI) | payer BC | END | disposition home or self-care (01) | LOC: RAD 11:54 | DX: M85.88 Other specified disorders of bone density and structure, other site (principal); M47.816 Spondylosis without myelopathy or radiculopathy, lumbar region; M54.30 Sciatica, unspecified side ==

== ENCOUNTER 2020-08-09 12:44 | Emergency (ER) | payer BC ==
[~2020-08-09] VITALS: Wt 113.4 kg
[2020-08-09 13:20] LABS: BASO # 0.1 10*3/uL (0.0-0.1); BASO % 0.7 % (0.0-1.0); EOS # 0.1 10*3/uL (0.0-0.4); EOS % 1.1 % (1.0-4.0); HEMATOCRIT 52.2 % (42.0-52.0); LYMPH # 2.3 10*3/uL (1.3-4.4); LYMPH % 24.3 % (27.0-41.0); MEAN CELL VOLUME 99.2 fl (80.0-94.0); MEAN CORPUSCULAR HGB 33.3 pg (27.0-31.0); MEAN CORPUSCULAR HGB CONC 33.5 g/dl (33.0-37.0); MEAN PLATELET VOLUME 8.9 fl (9.6-12.3); MONO # 0.9 10*3/uL (0.1-1.0); MONO % 9.3 % (3.0-9.0); NEUT # 6.1 10*3/uL (2.3-7.9); NEUT % 64.4 % (47.0-73.0); PLATELET COUNT AUTOMATED 213 10*3/uL (130-400); RED BLOOD COUNT 5.26 10*6/uL (4.50-5.90); RED CELL DISTRI WIDTH 12.3 % (0-14.5); WHITE BLOOD COUNT 9.5 10*3/uL (4.8-10.8)
[2020-08-09 13:40] LABS: ALBUMIN 3.6 gm/dl (3.1-4.5); ALKALINE PHOSPHATASE 108 U/L (45-117); BUN 12 mg/dl (7-24); CHLORIDE 110 mmol/L (98-107); LIPASE 100 U/L (73-393); POTASSIUM 4.5 mmol/L (3.5-5.1); SGOT/AST 22 IU/L (3-35); SGPT/ALT 38 U/L (12-78); SODIUM 142 mmol/L (136-145); TOTAL PROTEIN 6.8 gm/dL (6.4-8.2)
[2020-08-09 14:30] LABS: BILIRUBIN Negative (Negative); BLOOD Negative (Negative); CLARITY Clear (Clear); COLOR Yellow (Yellow); GLUCOSE Negative (Negative); KETONE Negative (Negative); LEUKO ESTERASE Negative (Negative); NITRITE Negative (Negative); PH 6.5 (4.5-8.0); UROBILINOGEN 0.2 E.U./dl (0.0-1.0)
[2020-08-09 14:36] LABS: BACTERIA TRACE; EPITHELIAL CELLS 0-2; WBC 0-2 wbc/hpf (0-5)
== END 2020-08-09 15:00 | disposition home or self-care (01) ==
LOC: ED 12:44
PROVIDERS: Emergency Medicine
DX: R10.11 Right upper quadrant pain (principal); I10 Essential (primary) hypertension; Z79.899 Other long term (current) drug therapy

== ENCOUNTER 2020-11-17 09:48 | Emergency (ER) | payer BC ==
[~2020-11-17] VITALS: Ht 182.8 cm; Wt 108.9 kg
[2020-11-17 10:08] LABS: BASO # 0.1 10*3/uL (0.0-0.1); BASO % 0.5 % (0.0-1.0); EOS # 0.2 10*3/uL (0.0-0.4); EOS % 1.5 % (1.0-4.0); LYMPH # 2.9 10*3/uL (1.3-4.4); LYMPH % 27.4 % (27.0-41.0); MEAN CELL VOLUME 98.7 fl (80.0-94.0); MEAN CORPUSCULAR HGB 33.4 pg (27.0-31.0); MEAN CORPUSCULAR HGB CONC 33.8 g/dl (33.0-37.0); MONO # 1.2 10*3/uL (0.1-1.0); MONO % 11.8 % (3.0-9.0); NEUT # 6.1 10*3/uL (2.3-7.9); NEUT % 58.5 % (47.0-73.0); PLATELET COUNT AUTOMATED 209 10*3/uL (130-400); RED BLOOD COUNT 5.27 10*6/uL (4.50-5.90); RED CELL DISTRI WIDTH 12.7 % (0-14.5); WHITE BLOOD COUNT 10.4 10*3/uL (4.8-10.8)
[2020-11-17 10:29] LABS: ALBUMIN 3.5 gm/dl (3.1-4.5); ALKALINE PHOSPHATASE 104 U/L (45-117); BUN 11 mg/dl (7-24); CHLORIDE 110 mmol/L (98-107); CREATININE 1.12 mg/dL (0.70-1.30); POTASSIUM 4.4 mmol/L (3.5-5.1); SGOT/AST 17 IU/L (3-35); SGPT/ALT 33 U/L (12-78); SODIUM 139 mmol/L (136-145)
[2020-11-17 10:32] LABS: TROPONIN I 0.353 ng/ml (<0.045)
== END 2020-11-17 13:18 | disposition short-term general hospital (02) ==
LOC: ED 09:48
PROVIDERS: Emergency Medicine
DX: I21.4 Non-ST elevation (NSTEMI) myocardial infarction (principal); F17.200 Nicotine dependence, unspecified, uncomplicated; Z79.2 Long term (current) use of antibiotics; Z79.899 Other long term (current) drug therapy

== ENCOUNTER 2021-04-13 12:14 | Emergency (ER) | payer BC ==
[~2021-04-13] VITALS: Ht 182.8 cm; Wt 99.8 kg
[2021-04-13] MEDS ORDERED: METOPROLOL TART50 M1 PO (12:22)
[2021-04-13] MEDS ORDERED: ATORVASTATIN CA80 M1 PO (12:22)
[2021-04-13] MEDS ORDERED: LISINOPRIL20 MG PO (12:22)
[2021-04-13] MEDS ORDERED: ASPIRIN ADULT L81 M2 PO (12:22)
[2021-04-13] MEDS ORDERED: PRASUGREL HCL10 MG PO (12:23)
[2021-04-13] MEDS ORDERED: B-100 COMPLEX100 MG PO (12:23)
[2021-04-13 12:43] LABS: BASO % 0.5 % (0.0-1.0); EOS # 0.1 10*3/uL (0.0-0.4); EOS % 1.6 % (1.0-4.0); HEMATOCRIT 49.4 % (42.0-52.0); LYMPH # 1.6 10*3/uL (1.3-4.4); LYMPH % 20.8 % (27.0-41.0); MEAN CELL VOLUME 100.2 fl (80.0-94.0); MEAN CORPUSCULAR HGB 33.3 pg (27.0-31.0); MEAN CORPUSCULAR HGB CONC 33.2 g/dl (33.0-37.0); MEAN PLATELET VOLUME 8.9 fl (9.6-12.3); MONO # 0.7 10*3/uL (0.1-1.0); MONO % 8.9 % (3.0-9.0); NEUT # 5.1 10*3/uL (2.3-7.9); NEUT % 67.9 % (47.0-73.0); PLATELET COUNT AUTOMATED 190 10*3/uL (130-400); RED BLOOD COUNT 4.93 10*6/uL (4.50-5.90); RED CELL DISTRI WIDTH 12.8 % (0-14.5); WHITE BLOOD COUNT 7.6 10*3/uL (4.8-10.8)
[2021-04-13 12:54] LABS: ACT PARTIAL THROMBO TIME 25.2 SECONDS (20.0-32.1)
[2021-04-13 12:57] LABS: ALBUMIN 3.4 gm/dl (3.1-4.5); ALKALINE PHOSPHATASE 106 U/L (45-117); BUN 14 mg/dl (7-24); CHLORIDE 107 mmol/L (98-107); CREATININE 1.11 mg/dL (0.70-1.30); POTASSIUM 4.5 mmol/L (3.5-5.1); SGOT/AST 23 IU/L (3-35); SGPT/ALT 40 U/L (12-78); SODIUM 138 mmol/L (136-145); TOTAL PROTEIN 6.9 gm/dL (6.4-8.2)
[2021-04-13] MEDS ORDERED: 'CLONIDINE0.1 MG PO (13:39)
== END 2021-04-13 14:49 | disposition home or self-care (01) ==
LOC: ED 12:14
PROVIDERS: Family Medicine
DX: R03.0 Elevated blood-pressure reading, without diagnosis of hypertension (principal); I25.2 Old myocardial infarction; Z79.899 Other long term (current) drug therapy; Z79.82 Long term (current) use of aspirin; F17.200 Nicotine dependence, unspecified, uncomplicated

== ENCOUNTER 2021-05-01 21:16 | Emergency (ER) | payer BC ==
[~2021-05-01] VITALS: Ht 182.8 cm; Wt 97.5 kg
[~2021-05-01 21:16] MED LIST changes: +'CLONIDINE0.1 MG PO; +ASPIRIN ADULT L81 M2 PO; +ATORVASTATIN CA80 M1 PO; +B-100 COMPLEX100 MG PO; +LISINOPRIL20 MG PO; +METOPROLOL TART50 M1 PO; +PRASUGREL HCL10 MG PO
[2021-05-01] MEDS ORDERED: METHOCARBAMOL750 M1 PO (23:05)
[2021-05-01] MEDS ORDERED: NAPROXEN250 MG PO (23:05)
== END 2021-05-01 23:12 | disposition home or self-care (01) ==
LOC: ED 21:16
DX: S16.1XXA Strain of muscle, fascia and tendon at neck level, initial encounter (principal); W17.89XA Other fall from one level to another, initial encounter; Y93.89 Activity, other specified; Y92.89 Other specified places as the place of occurrence of the external cause; Y99.8 Other external cause status

== ENCOUNTER 2021-06-03 21:14 | Emergency (ER) | payer BC ==
[~2021-06-03] VITALS: Ht 182.8 cm; Wt 99.8 kg
[~2021-06-03 21:14] MED LIST changes: +METHOCARBAMOL750 M1 PO; +NAPROXEN250 MG PO
[2021-06-03 23:36] LABS: BASO % 0.6 % (0.0-1.0); EOS # 0.2 10*3/uL (0.0-0.4); EOS % 2.8 % (1.0-4.0); HEMATOCRIT 44.8 % (42.0-52.0); LYMPH # 1.4 10*3/uL (1.3-4.4); LYMPH % 20.5 % (27.0-41.0); MEAN CELL VOLUME 96.1 fl (80.0-94.0); MEAN CORPUSCULAR HGB 32.8 pg (27.0-31.0); MEAN CORPUSCULAR HGB CONC 34.2 g/dl (33.0-37.0); MEAN PLATELET VOLUME 8.6 fl (9.6-12.3); MONO # 0.8 10*3/uL (0.1-1.0); NEUT # 4.4 10*3/uL (2.3-7.9); NEUT % 63.8 % (47.0-73.0); PLATELET COUNT AUTOMATED 177 10*3/uL (130-400); RED BLOOD COUNT 4.66 10*6/uL (4.50-5.90); RED CELL DISTRI WIDTH 12.7 % (0-14.5); WHITE BLOOD COUNT 6.8 10*3/uL (4.8-10.8)
[2021-06-03 23:51] LABS: ALBUMIN 3.3 gm/dl (3.1-4.5); ALKALINE PHOSPHATASE 100 U/L (45-117); BUN 10 mg/dl (7-24); CHLORIDE 113 mmol/L (98-107); CREATININE 0.94 mg/dL (0.70-1.30); POTASSIUM 4.2 mmol/L (3.5-5.1); SGOT/AST 22 IU/L (3-35); SGPT/ALT 33 U/L (12-78); SODIUM 142 mmol/L (136-145); TOTAL PROTEIN 6.4 gm/dL (6.4-8.2)
[2021-06-04] MEDS ORDERED: BENZONATATE200 MG PO (02:38)
== END 2021-06-04 02:46 | disposition home or self-care (01) ==
LOC: ED 21:14
PROVIDERS: Emergency Medicine
DX: J06.9 Acute upper respiratory infection, unspecified (principal); Z20.822 Contact with and (suspected) exposure to COVID-19; Z79.899 Other long term (current) drug therapy; Z79.82 Long term (current) use of aspirin; Z87.891 Personal history of nicotine dependence

== ENCOUNTER 2021-11-09 11:40 | Emergency (ER) | payer BC ==
[~2021-11-09] VITALS: Wt 90.7 kg
[~2021-11-09 11:40] MED LIST changes: +BENZONATATE200 MG PO; +NORVASC5 MG PO
[2021-11-09] MEDS ORDERED: IBUPROFEN400 MG PO (12:05)
== END 2021-11-09 12:36 | disposition home or self-care (01) ==
LOC: ED 11:40
DX: K08.89 Other specified disorders of teeth and supporting structures (principal); Z79.899 Other long term (current) drug therapy; Z79.82 Long term (current) use of aspirin

== ENCOUNTER 2021-12-16 14:05 | Emergency (ER) | payer BC ==
[~2021-12-16] VITALS: Wt 93.0 kg
[2021-12-16 14:38] LABS: BASO % 0.5 % (0.0-1.0); EOS # 0.1 10*3/uL (0.0-0.4); EOS % 1.5 % (1.0-4.0); LYMPH # 1.7 10*3/uL (1.3-4.4); LYMPH % 21.6 % (27.0-41.0); MEAN CELL VOLUME 97.8 fl (80.0-94.0); MEAN CORPUSCULAR HGB 33.3 pg (27.0-31.0); MEAN CORPUSCULAR HGB CONC 34.1 g/dl (33.0-37.0); MEAN PLATELET VOLUME 8.7 fl (9.6-12.3); MONO # 0.7 10*3/uL (0.1-1.0); MONO % 9.3 % (3.0-9.0); NEUT # 5.3 10*3/uL (2.3-7.9); PLATELET COUNT AUTOMATED 187 10*3/uL (130-400); RED CELL DISTRI WIDTH 13.6 % (0-14.5); WHITE BLOOD COUNT 7.9 10*3/uL (4.8-10.8)
[2021-12-16 14:48] LABS: ACT PARTIAL THROMBO TIME 26.6 SECONDS (20.0-32.1); INTERNATIONAL NORM RATIO 0.9 (2.0-3.5)
[2021-12-16 14:53] LABS: ALKALINE PHOSPHATASE 107 U/L (45-117); BUN 12 mg/dl (7-24); CHLORIDE 112 mmol/L (98-107); CREATININE 1.01 mg/dL (0.70-1.30); POTASSIUM 4.6 mmol/L (3.5-5.1); SGOT/AST 22 IU/L (3-35); SGPT/ALT 29 U/L (12-78); SODIUM 139 mmol/L (136-145); TOTAL PROTEIN 6.3 gm/dL (6.4-8.2)
[2021-12-16] MEDS ORDERED: ZITHROMAX250 MG PO (18:01)
== END 2021-12-16 18:03 | disposition home or self-care (01) ==
LOC: ED 14:05
PROVIDERS: Emergency Medicine
DX: J20.9 Acute bronchitis, unspecified (principal); F17.200 Nicotine dependence, unspecified, uncomplicated; F12.90 Cannabis use, unspecified, uncomplicated; Z79.82 Long term (current) use of aspirin; Z79.899 Other long term (current) drug therapy

== ENCOUNTER 2022-02-10 23:55 | Emergency (ER) | payer BC ==
[~2022-02-10] VITALS: Ht 182.8 cm; Wt 93.0 kg
[2022-02-11 00:42] LABS: BASO % 0.5 % (0.0-1.0); EOS # 0.2 10*3/uL (0.0-0.4); EOS % 1.8 % (1.0-4.0); HEMATOCRIT 44.6 % (42.0-52.0); LYMPH % 23.5 % (27.0-41.0); MEAN CELL VOLUME 98.7 fl (80.0-94.0); MEAN CORPUSCULAR HGB 33.6 pg (27.0-31.0); MEAN CORPUSCULAR HGB CONC 34.1 g/dl (33.0-37.0); MEAN PLATELET VOLUME 8.6 fl (9.6-12.3); MONO # 0.7 10*3/uL (0.1-1.0); MONO % 8.5 % (3.0-9.0); NEUT # 5.6 10*3/uL (2.3-7.9); NEUT % 65.5 % (47.0-73.0); PLATELET COUNT AUTOMATED 187 10*3/uL (130-400); RED BLOOD COUNT 4.52 10*6/uL (4.50-5.90); WHITE BLOOD COUNT 8.6 10*3/uL (4.8-10.8)
[2022-02-11 00:58] LABS: ALKALINE PHOSPHATASE 91 U/L (45-117); BUN 15 mg/dl (7-24); CHLORIDE 111 mmol/L (98-107); CREATININE 1.06 mg/dL (0.70-1.30); LIPASE 910 U/L (73-393); POTASSIUM 3.8 mmol/L (3.5-5.1); SGOT/AST 18 IU/L (3-35); SGPT/ALT 30 U/L (12-78); SODIUM 139 mmol/L (136-145); TOTAL PROTEIN 6.5 gm/dL (6.4-8.2)
[2022-02-11] MEDS ORDERED: PENICILLIN VK500 MG PO (01:02)
== END 2022-02-11 03:15 | disposition home or self-care (01) ==
LOC: ED 23:55
PROVIDERS: Emergency Medicine
DX: M25.511 Pain in right shoulder (principal); M25.512 Pain in left shoulder; Z13.89 Encounter for screening for other disorder; Z79.899 Other long term (current) drug therapy; Z79.82 Long term (current) use of aspirin; Z87.891 Personal history of nicotine dependence

== ENCOUNTER 2022-06-30 09:06 | Emergency (ER) | payer BC ==
[~2022-06-30] VITALS: Ht 182.8 cm; Wt 98.4 kg
[~2022-06-30 09:06] MED LIST changes: +PENICILLIN VK500 MG PO
[2022-06-30 09:50] LABS: BASO % 0.5 % (0.0-1.0); EOS # 0.1 10*3/uL (0.0-0.4); EOS % 0.9 % (1.0-4.0); HEMATOCRIT 45.4 % (42.0-52.0); LYMPH # 1.3 10*3/uL (1.3-4.4); LYMPH % 22.8 % (27.0-41.0); MEAN CELL VOLUME 98.7 fl (80.0-94.0); MEAN CORPUSCULAR HGB 32.8 pg (27.0-31.0); MEAN CORPUSCULAR HGB CONC 33.3 g/dl (33.0-37.0); MEAN PLATELET VOLUME 8.6 fl (9.6-12.3); MONO # 0.5 10*3/uL (0.1-1.0); MONO % 9.3 % (3.0-9.0); NEUT # 3.8 10*3/uL (2.3-7.9); NEUT % 66.1 % (47.0-73.0); PLATELET COUNT AUTOMATED 178 10*3/uL (130-400); WHITE BLOOD COUNT 5.7 10*3/uL (4.8-10.8)
[2022-06-30 10:10] LABS: ALKALINE PHOSPHATASE 96 U/L (46-116); BUN 10 mg/dl (9-23); CHLORIDE 104 mmol/L (98-107); POTASSIUM 4.1 mmol/L (3.4-5.1); SGPT/ALT 32 U/L (10-49); TOTAL PROTEIN 6.3 gm/dL (6.0-8.0)
== END 2022-06-30 16:57 | disposition short-term general hospital (02) ==
LOC: ED 09:06
PROVIDERS: Emergency Medicine
DX: M54.12 Radiculopathy, cervical region (principal); R22.31 Localized swelling, mass and lump, right upper limb; Z98.890 Other specified postprocedural states; F17.200 Nicotine dependence, unspecified, uncomplicated; F12.90 Cannabis use, unspecified, uncomplicated

== ENCOUNTER 2022-11-24 15:48 | Emergency (ER) | payer BC ==
[~2022-11-24] VITALS: Ht 182.8 cm; Wt 102.1 kg
[2022-11-24] MEDS ORDERED: XARELTO2.5 MG PO (16:18)
[2022-11-24] MEDS ORDERED: CILOSTAZOL100 MG PO (16:20)
[2022-11-24 16:45] LABS: BASO % 0.4 % (0.0-1.0); EOS # 0.1 10*3/uL (0.0-0.4); EOS % 1.7 % (1.0-4.0); HEMATOCRIT 45.1 % (42.0-52.0); LYMPH # 2.3 10*3/uL (1.3-4.4); LYMPH % 30.5 % (27.0-41.0); MEAN CELL VOLUME 94.4 fl (80.0-94.0); MEAN CORPUSCULAR HGB 32.6 pg (27.0-31.0); MEAN CORPUSCULAR HGB CONC 34.6 g/dl (33.0-37.0); MEAN PLATELET VOLUME 8.9 fl (9.6-12.3); MONO # 0.7 10*3/uL (0.1-1.0); MONO % 9.6 % (3.0-9.0); NEUT # 4.3 10*3/uL (2.3-7.9); NEUT % 57.5 % (47.0-73.0); PLATELET COUNT AUTOMATED 201 10*3/uL (130-400); RED BLOOD COUNT 4.78 10*6/uL (4.50-5.90); WHITE BLOOD COUNT 7.5 10*3/uL (4.8-10.8)
[2022-11-24 17:06] LABS: LIPASE 54 U/L (12-53)
[2022-11-24 17:09] LABS: ALKALINE PHOSPHATASE 95 U/L (46-116); BUN 12 mg/dl (9-23); CHLORIDE 108 mmol/L (98-107); POTASSIUM 3.7 mmol/L (3.4-5.1); SGPT/ALT 24 U/L (10-49); TOTAL PROTEIN 6.3 gm/dL (6.0-8.0)
== END 2022-11-24 19:15 | disposition home or self-care (01) ==
LOC: ED 15:48
PROVIDERS: Emergency Medicine
DX: R07.89 Other chest pain (principal); M54.9 Dorsalgia, unspecified; M79.602 Pain in left arm; M79.601 Pain in right arm; I25.2 Old myocardial infarction; F32.A Depression, unspecified; F12.90 Cannabis use, unspecified, uncomplicated; F17.200 Nicotine dependence, unspecified, uncomplicated

== ENCOUNTER 2023-02-17 19:38 | Inpatient (IN) | payer BC ==
[~2023-02-17] VITALS: Ht 182.8 cm; Wt 106.6 kg
[2023-02-17 19:38] VITALS: BP 143/73
[~2023-02-17 19:38] MED LIST changes: +CILOSTAZOL100 MG PO; +XARELTO2.5 MG PO
[2023-02-17 20:14] LABS: BASO % 0.5 % (0.0-1.0); EOS # 0.2 10*3/uL (0.0-0.4); EOS % 2.1 % (1.0-4.0); HEMATOCRIT 46.5 % (42.0-52.0); LYMPH # 2.4 10*3/uL (1.3-4.4); LYMPH % 27.8 % (27.0-41.0); MEAN CELL VOLUME 97.1 fl (80.0-94.0); MEAN CORPUSCULAR HGB 34.7 pg (27.0-31.0); MEAN CORPUSCULAR HGB CONC 35.7 g/dl (33.0-37.0); MEAN PLATELET VOLUME 8.7 fl (9.6-12.3); MONO # 0.8 10*3/uL (0.1-1.0); MONO % 9.9 % (3.0-9.0); NEUT % 59.5 % (47.0-73.0); PLATELET COUNT AUTOMATED 212 10*3/uL (130-400); RED BLOOD COUNT 4.79 10*6/uL (4.50-5.90); RED CELL DISTRI WIDTH 12.9 % (0-14.5); WHITE BLOOD COUNT 8.5 10*3/uL (4.8-10.8)
[2023-02-17 20:38] LABS: ALKALINE PHOSPHATASE 106 U/L (46-116); BUN 9 mg/dl (9-23); CHLORIDE 109 mmol/L (98-107); POTASSIUM 3.9 mmol/L (3.4-5.1); SGPT/ALT 29 U/L (10-49); TOTAL PROTEIN 6.6 gm/dL (6.0-8.0)
[2023-02-18 00:06] VITALS: BP 111/56
[2023-02-18 01:13] VITALS: BP 104/58
[2023-02-18 03:20] VITALS: BP 97/55
[2023-02-18 05:56] LABS: BUN 7 mg/dl (9-23); CHLORIDE 110 mmol/L (98-107); CHOLESTEROL 99 mg/dL (<200); LDL CHOLESTEROL 43 mg/dL (9-159); POTASSIUM 3.9 mmol/L (3.4-5.1); TRIGLYCERIDES 84 mg/dl (<150)
[2023-02-18 06:07] LABS: BASO % 0.5 % (0.0-1.0); EOS # 0.2 10*3/uL (0.0-0.4); EOS % 1.9 % (1.0-4.0); HEMATOCRIT 46.2 % (42.0-52.0); LYMPH # 2.6 10*3/uL (1.3-4.4); LYMPH % 30.8 % (27.0-41.0); MEAN CELL VOLUME 98.9 fl (80.0-94.0); MEAN CORPUSCULAR HGB 33.4 pg (27.0-31.0); MEAN CORPUSCULAR HGB CONC 33.8 g/dl (33.0-37.0); MEAN PLATELET VOLUME 9.2 fl (9.6-12.3); MONO # 0.9 10*3/uL (0.1-1.0); MONO % 10.9 % (3.0-9.0); NEUT # 4.7 10*3/uL (2.3-7.9); NEUT % 55.5 % (47.0-73.0); PLATELET COUNT AUTOMATED 187 10*3/uL (130-400); RED BLOOD COUNT 4.67 10*6/uL (4.50-5.90); WHITE BLOOD COUNT 8.4 10*3/uL (4.8-10.8)
[2023-02-18 06:17] VITALS: BP 100/63
[2023-02-18 09:38] VITALS: BP 108/69
[2023-02-18 14:10] VITALS: BP 113/70
== END 2023-02-18 17:05 | disposition home or self-care (01) | DRG 282 ==
LOC: ED 19:38 → EDHOLD 22:50
PROVIDERS: Internal Medicine; ADMIT Internal Medicine; ATTEND Internal Medicine
PROC: 4A02XM4 Measurement of Cardiac Total Activity, External Approach (ICD-10-PCS; principal; 2023-02-18)
PROC: 3E073KZ Introduction of Other Diagnostic Substance into Coronary Artery, Percutaneous Approach (ICD-10-PCS; 2023-02-18)
DX: I21.4 Non-ST elevation (NSTEMI) myocardial infarction (principal); I25.10 Atherosclerotic heart disease of native coronary artery without angina pectoris; I10 Essential (primary) hypertension; Z71.6 Tobacco abuse counseling; Z95.5 Presence of coronary angioplasty implant and graft; Z90.49 Acquired absence of other specified parts of digestive tract

== ENCOUNTER → 2023-07-01 | Outpatient (CLI) | payer BC ==
[2023-07-01 07:20] LABS: HEMATOCRIT 49.8 % (42.0-52.0); MEAN CELL VOLUME 101.4 fl (80.0-94.0); MEAN CORPUSCULAR HGB 32.8 pg (27.0-31.0); MEAN CORPUSCULAR HGB CONC 32.3 g/dl (33.0-37.0); MEAN PLATELET VOLUME 8.8 fl (9.6-12.3); RED BLOOD COUNT 4.91 10*6/uL (4.50-5.90); RED CELL DISTRI WIDTH 12.9 % (0-14.5); WHITE BLOOD COUNT 8.8 10*3/uL (4.8-10.8)
[2023-07-01 08:08] LABS: ALKALINE PHOSPHATASE 107 U/L (46-116); BUN 12 mg/dl (9-23); CHLORIDE 110 mmol/L (98-107); CHOLESTEROL 115 mg/dL (<200); LDL CHOLESTEROL 57 mg/dL (9-159); POTASSIUM 4.3 mmol/L (3.4-5.1); SGPT/ALT 34 U/L (5-49); TOTAL PROTEIN 6.6 gm/dL (6.0-8.0); TRIGLYCERIDES 69 mg/dl (<150)
== END | disposition home or self-care (01) ==
LOC: LAB 07:02
PROVIDERS: ATTEND Family Medicine
DX: N40.0 Benign prostatic hyperplasia without lower urinary tract symptoms (principal); E55.9 Vitamin D deficiency, unspecified; E78.00 Pure hypercholesterolemia, unspecified; I10 Essential (primary) hypertension

== ENCOUNTER 2024-05-28 15:56 | Emergency (ER) | payer BC ==
[~2024-05-28] VITALS: Ht 182.8 cm; Wt 111.1 kg
[2024-05-28] MEDS ORDERED: Acetaminophen/Oxycodone 5 MG/325 MG TABLET PO ONE ×2 (19:35→19:40)
[2024-05-28] MEDS ORDERED: PERCOCET 5-3251 EACH PO (19:39)
== END 2024-05-28 20:01 | disposition home or self-care (01) ==
LOC: ED 15:56
DX: S32.028A Other fracture of second lumbar vertebra, initial encounter for closed fracture (principal); S32.038A Other fracture of third lumbar vertebra, initial encounter for closed fracture; M25.551 Pain in right hip; I25.2 Old myocardial infarction; F32.A Depression, unspecified; R10.30 Lower abdominal pain, unspecified; F17.200 Nicotine dependence, unspecified, uncomplicated; F12.90 Cannabis use, unspecified, uncomplicated; W10.8XXA Fall (on) (from) other stairs and steps, initial encounter; Y93.89 Activity, other specified; Y92.89 Other specified places as the place of occurrence of the external cause; Y99.8 Other external cause status

== ENCOUNTER 2024-06-18 16:16 | Emergency (ER) | payer BC ==
[~2024-06-18] VITALS: Ht 182.8 cm; Wt 111.1 kg
[~2024-06-18 16:16] MED LIST changes: +PERCOCET 5-3251 EACH PO
[2024-06-18] MEDS ORDERED: fentaNYL CITRATE 100 MCG/2 ML VIAL IV ONE (16:30)
[2024-06-18] MEDS ORDERED: METOPROLOL TART50 M1 PO (16:38)
[2024-06-18] MEDS ORDERED: LISINOPRIL20 MG PO (16:39)
[2024-06-18] MEDS ORDERED: ASPIRIN CHEWABL81 MG PO (16:41)
[2024-06-18] MEDS ORDERED: ISOSORBIDE DINIT5 M2 PO (16:42)
[2024-06-18 16:46] LABS: BASO % 0.3 % (0.0-1.0); EOS # 0.2 10*3/uL (0.0-0.4); EOS % 1.7 % (1.0-4.0); HEMATOCRIT 44.6 % (42.0-52.0); MEAN CORPUSCULAR HGB 33.4 pg (27.0-31.0); MEAN CORPUSCULAR HGB CONC 33.4 g/dl (33.0-37.0); MEAN PLATELET VOLUME 8.7 fl (9.6-12.3); MONO # 0.8 10*3/uL (0.1-1.0); MONO % 9.3 % (3.0-9.0); NEUT # 5.4 10*3/uL (2.3-7.9); PLATELET COUNT AUTOMATED 219 10*3/uL (130-400); RED BLOOD COUNT 4.46 10*6/uL (4.50-5.90); RED CELL DISTRI WIDTH 12.6 % (0-14.5); WHITE BLOOD COUNT 8.7 10*3/uL (4.8-10.8)
[2024-06-18 17:08] LABS: ALKALINE PHOSPHATASE 121 U/L (46-116); BUN 9 mg/dl (9-23); CHLORIDE 107 mmol/L (98-107); POTASSIUM 3.7 mmol/L (3.4-5.1); SGPT/ALT 22 U/L (5-49); TOTAL PROTEIN 6.5 gm/dL (6.0-8.0)
== END 2024-06-18 19:30 | disposition home or self-care (01) ==
LOC: ED 16:16
PROVIDERS: Nurse Practitioner Family
DX: R07.89 Other chest pain (principal); E87.6 Hypokalemia; I25.2 Old myocardial infarction; F32.A Depression, unspecified; M19.90 Unspecified osteoarthritis, unspecified site; F17.200 Nicotine dependence, unspecified, uncomplicated; F12.90 Cannabis use, unspecified, uncomplicated

== ENCOUNTER → 2024-08-31 | Outpatient (CLI) | payer BC ==
[~2024-08-31] MED LIST changes: +ASPIRIN CHEWABL81 MG PO; +ISOSORBIDE DINIT5 M2 PO
== END | disposition home or self-care (01) ==
LOC: US 16:34
PROVIDERS: ATTEND Family Medicine
DX: N50.3 Cyst of epididymis (principal); N50.812 Left testicular pain

== ENCOUNTER 2024-09-19 17:21 | Observation (INO) | payer BC ==
[~2024-09-19] VITALS: Ht 182.8 cm; Wt 113.4 kg
[2024-09-19 17:43] VITALS: BP 134/84
[2024-09-19] MEDS ORDERED: IMDUR SA30 MG PO (17:44)
[2024-09-19] MEDS ORDERED: BUSPAR5 MG PO (17:46)
[2024-09-19 17:52] VITALS: BP 123/78
[2024-09-19] MEDS ORDERED: NITROGLYCERIN 0.4 MG BOT SL ONE (17:55)
[2024-09-19 17:57] LABS: BASO % 0.2 % (0.0-1.0); EOS # 0.2 10*3/uL (0.0-0.4); EOS % 1.8 % (1.0-4.0); HEMATOCRIT 44.8 % (42.0-52.0); MEAN CELL VOLUME 97.2 fl (80.0-94.0); MEAN CORPUSCULAR HGB 33.2 pg (27.0-31.0); MEAN CORPUSCULAR HGB CONC 34.2 g/dl (33.0-37.0); MEAN PLATELET VOLUME 8.7 fl (9.6-12.3); MONO # 0.9 10*3/uL (0.1-1.0); MONO % 9.5 % (3.0-9.0); NEUT # 5.6 10*3/uL (2.3-7.9); PLATELET COUNT AUTOMATED 203 10*3/uL (130-400); RED BLOOD COUNT 4.61 10*6/uL (4.50-5.90); RED CELL DISTRI WIDTH 13.1 % (0-14.5); WHITE BLOOD COUNT 8.9 10*3/uL (4.8-10.8)
[2024-09-19 18:10] LABS: ACT PARTIAL THROMBO TIME 24.8 SECONDS (20.0-32.1)
[2024-09-19 18:21] LABS: ALKALINE PHOSPHATASE 113 U/L (46-116); BUN 8 mg/dl (9-23); CHLORIDE 108 mmol/L (98-107); POTASSIUM 3.8 mmol/L (3.4-5.1); SGPT/ALT 23 U/L (5-49); TOTAL PROTEIN 6.5 gm/dL (6.0-8.0)
[2024-09-19 18:29] VITALS: BP 118/73
[2024-09-19 18:44] VITALS: BP 114/69
[2024-09-19 18:55] VITALS: BP 114/68
[2024-09-19] MEDS ORDERED: ASPIRIN, CHEWABLE 81 MG TAB PO ONE (19:35)
[2024-09-19 20:04] VITALS: BP 97/58
[2024-09-19] MEDS ORDERED: ATORVASTATIN CALCIUM 80 MG TAB PO SCH (22:00)
[2024-09-20 01:30] VITALS: BP 114/60
[2024-09-20 06:47] VITALS: BP 98/59
[2024-09-20 08:31] VITALS: BP 106/68
[2024-09-20] MEDS ORDERED: Regadenoson 0.4 MG/5 ML SYR IV ONE (09:49)
[2024-09-20] MEDS ORDERED: busPIRone Hydrochloride 5 MG TAB PO SCH ×2 (10:00→11:18)
[2024-09-20] MEDS ORDERED: RIVAROXABAN 2.5 MG TABLET PO SCH ×2 (10:00→11:19)
[2024-09-20] MEDS ORDERED: ISOSORBIDE MONONITRATE 30 MG TAB PO SCH ×2 (10:00→11:18)
[2024-09-20] MEDS ORDERED: LISINOPRIL 10 MG TAB PO SCH ×2 (10:00→11:18)
[2024-09-20] MEDS ORDERED: CILOSTAZOL 100 MG TAB PO SCH ×2 (10:00→11:18)
[2024-09-20] MEDS ORDERED: Metoprolol Tartrate 50 MG TAB PO SCH ×2 (10:00→11:19)
[2024-09-20] MEDS ORDERED: Pantoprazole Sodium 40 MG TAB PO SCH (10:50)
[2024-09-20 11:48] VITALS: BP 117/79
[2024-09-20 12:51] VITALS: BP 97/58
[2024-09-20] MEDS ORDERED: ATORVASTATIN CALCIUM 80 MG TAB PO SCH (16:00)
== END 2024-09-20 14:06 | disposition home or self-care (01) ==
LOC: ED 17:21 → EDHOLD 19:53
PROVIDERS: Emergency Medicine; ADMIT Internal Medicine; ATTEND Internal Medicine
DX: R07.89 Other chest pain (principal); I25.10 Atherosclerotic heart disease of native coronary artery without angina pectoris; I10 Essential (primary) hypertension; I73.9 Peripheral vascular disease, unspecified; F17.200 Nicotine dependence, unspecified, uncomplicated; Z79.899 Other long term (current) drug therapy